=== PATIENT | male | born 1955 | race Caucasian/White ===

== ENCOUNTER → 2016-06-18 | Outpatient (CLI) | payer OTHER ==
[~2016-06-18] MED LIST: ASPIRIN EC81 MG PO; COREG 25MG TAB25 MG PO; CRESTOR20 MG PO; ESSENTIAL DAIL1 EACH PO; FISH OIL 1,0001 EAC4 PO; NORVASC10 MG PO; PLAVIX 75 MG TA75 MG PO; TRICOR 48 MG TA48 MG PO
== END ==
LOC: KOH-I 11:30
DX: G44.209 Tension-type headache, unspecified, not intractable (principal); H93.19 Tinnitus, unspecified ear
CPT/HCPCS: 70551

== ENCOUNTER → 2020-04-11 | Outpatient (CLI) | payer MEDICARE, OTHER ==
[~2020-04-11] MED LIST changes: +ALLERGY RELIEF180 MG PO; +CARVEDILOL25 MG PO; +D3 PO; +ENTRESTO 49 MG1 EACH PO; +FENOFIBRATE48 MG PO; +FISH OIL 1,0001 EACH PO; +FISH OIL 1,2001 EAC1 PO; +MULTI VIT PO; +PANTOPRAZOLE SO40 MG PO; +PLAVIX75 MG PO; +PROTONIX40 MG PO; +TOPIRAMATE25 MG PO; +TRICOR48 MG PO
== END ==
LOC: KOH-I 10:47
DX: M79.672 Pain in left foot (principal)
CPT/HCPCS: 73630; 73650

== ENCOUNTER → 2021-05-08 | Day surgery (SDC) | payer MEDICARE | END | disposition home or self-care (01) | LOC: OR 05:59 | PROVIDERS: Internal Medicine Gastroenterology | PROC: 0DB38ZX Excision of Lower Esophagus, Via Natural or Artificial Opening Endoscopic, Diagnostic (ICD-10-PCS; 2021-05-08) | PROC: 0DBK8ZX Excision of Ascending Colon, Via Natural or Artificial Opening Endoscopic, Diagnostic (ICD-10-PCS; 2021-05-08) | PROC: 0DBP8ZX Excision of Rectum, Via Natural or Artificial Opening Endoscopic, Diagnostic (ICD-10-PCS; 2021-05-08) | PROC: 0DB68ZX Excision of Stomach, Via Natural or Artificial Opening Endoscopic, Diagnostic (ICD-10-PCS; principal; 2021-05-08 07:30) | PROC: 0DB78ZX Excision of Stomach, Pylorus, Via Natural or Artificial Opening Endoscopic, Diagnostic (ICD-10-PCS; 2021-05-08 07:30) | DX: Z12.11 Encounter for screening for malignant neoplasm of colon (principal); K29.50 Unspecified chronic gastritis without bleeding; B96.81 Helicobacter pylori [H. pylori] as the cause of diseases classified elsewhere; D12.2 Benign neoplasm of ascending colon; D12.8 Benign neoplasm of rectum; K22.70 Barrett's esophagus without dysplasia; K21.00 Gastro-esophageal reflux disease with esophagitis, without bleeding; K57.30 Diverticulosis of large intestine without perforation or abscess without bleeding; K64.1 Second degree hemorrhoids; E78.00 Pure hypercholesterolemia, unspecified; I25.2 Old myocardial infarction; I13.0 Hypertensive heart and chronic kidney disease with heart failure and stage 1 through stage 4 chronic kidney disease, or unspecified chronic kidney disease; N18.30 Chronic kidney disease, stage 3 unspecified; I50.22 Chronic systolic (congestive) heart failure; D63.1 Anemia in chronic kidney disease; E78.5 Hyperlipidemia, unspecified; I25.10 Atherosclerotic heart disease of native coronary artery without angina pectoris; E66.3 Overweight; Z68.31 Body mass index [BMI] 31.0-31.9, adult; Z20.822 Contact with and (suspected) exposure to COVID-19; Z79.02 Long term (current) use of antithrombotics/antiplatelets; Z79.82 Long term (current) use of aspirin; Z79.899 Other long term (current) drug therapy; Z95.5 Presence of coronary angioplasty implant and graft; Z95.1 Presence of aortocoronary bypass graft; Z90.49 Acquired absence of other specified parts of digestive tract; Z86.010 Personal history of colon polyps | CPT/HCPCS: J2001; J2704; J7040 ==

== ENCOUNTER → 2021-10-21 | Outpatient (CLI) | payer OTHER ==
[~2021-10-21] MED LIST changes: +DIGOXIN125 MCG PO; +ELIQUIS 5 MG TAB5 MG PO; +ENTRESTO 97 MG1 EACH PO; +FEXOFENADINE H180 MG PO; +FUROSEMIDE20 MG PO; -MULTI VIT PO; +MULTIVITAMIN1 EACH PO; +NITROGLYCERIN0.4 MG SL
== END ==
LOC: US 09:03
DX: R18.8 Other ascites (principal); R16.0 Hepatomegaly, not elsewhere classified
CPT/HCPCS: 76700